=== PATIENT | female | born 1985 | race Two or more races ===

== ENCOUNTER 2023-07-14 00:20 | Emergency (ER) | payer MEDICAID ==
[~2023-07-14] VITALS: Ht 147.3 cm; Wt 86.2 kg
[2023-07-14] MEDS ORDERED: ERYTHROMYCIN BASE OPHTH 3.5 GM TUBE OP ONE (02:00)
[2023-07-14] MEDS ORDERED: IBUP-1953 PO (02:16)
[2023-07-14] MEDS ORDERED: ERYT3.5O9 LEFTEYE (02:16)
[2023-07-14] MEDS ORDERED: ERYTHROMYCIN BASE OPHTH 3.5 GM TUBE ONE (02:20)
[2023-07-14] MEDS ORDERED: dexaMETHasone SOD PHOSPHATE 10 MG/ML VIAL ONE (02:20)
[2023-07-14] MEDS ORDERED: dexaMETHasone SOD PHOSPHATE 10 MG/ML VIAL IM ONE (02:30)
[2023-07-14 02:39] VITALS: BP 148/78; TEMP 98.1; O2SAT 99
== END 2023-07-14 02:39 | disposition home or self-care (01) ==
LOC: ER 00:20
DX: H01.004 Unspecified blepharitis left upper eyelid (principal); J45.909 Unspecified asthma, uncomplicated
CPT/HCPCS: 99283; 96372; J1100